=== PATIENT | male | born 1975 | race Caucasian/White ===

== ENCOUNTER 2019-02-03 18:38 | Emergency (ER) | payer BC, OTHER ==
[2019-02-03 19:02] VITALS: BP 127/89
[2019-02-03] MEDS ORDERED: Lidocaine 1% MPF ** 5 ML VIAL INJ ONE (19:17)
[2019-02-03] MEDS ORDERED: Ibuprofen TAB* 600 MG PO ONE (19:17)
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
[2019-02-03] MEDS ORDERED: Cephalexin CAP* 500 MG PO ONE ×2 (20:06)
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
== END 2019-02-03 20:51 | disposition home or self-care (01) ==
LOC: UCCORT 18:38
DX: S51.012A Laceration without foreign body of left elbow, initial encounter (principal); S70.02XA Contusion of left hip, initial encounter; S93.401A Sprain of unspecified ligament of right ankle, initial encounter; S76.311A Strain of muscle, fascia and tendon of the posterior muscle group at thigh level, right thigh, initial encounter; V86.99XA Unspecified occupant of other special all-terrain or other off-road motor vehicle injured in nontraffic accident, initial encounter; Y93.9 Activity, unspecified; R31.9 Hematuria, unspecified
CPT/HCPCS: 12002; 81003; 99212; A9270-GY; G0463